=== PATIENT | male | born 1975 | race Caucasian/White ===

== ENCOUNTER 2021-11-25 18:42 | Emergency (ER) | payer OTHER ==
[2021-11-25] MEDS ORDERED: Lidocaine 2% 20 ML MDV INFILT ONE (19:00)
[2021-11-25] MEDS ORDERED: Amoxicillin/Clavulanate K 875-125 MG Tab ONE (20:00)
== END 2021-11-25 20:18 | disposition home or self-care (01) ==
LOC: LB.ED 18:42
DX: S81.812A Laceration without foreign body, left lower leg, initial encounter (principal); W01.0XXA Fall on same level from slipping, tripping and stumbling without subsequent striking against object, initial encounter
CPT/HCPCS: 12006; 99282; A9270